=== PATIENT | female | born 1945 | race Caucasian/White ===

== ENCOUNTER 2020-08-21 14:54 | Emergency (ER) | payer OTHER ==
[2020-08-21 15:09] VITALS: BMI 27.3
[2020-08-21 15:58] VITALS: TEMP 97.5
[2020-08-21 18:13] VITALS: BP 138/58; PULSE 88
[2020-08-21 18:49] LABS: BASO % 0.5 % (0-2.0); EOS % 0.8 % (0-4.5); HEMATOCRIT 36.9 % (32.4-45.2); HEMOGLOBIN 12.8 GM/dL (10.7-15.3); LYMPH % 18.8 % (8-40); MCH 31.1 pg (25.7-33.7); MCHC 34.7 g/dl (32.0-36.0); MEAN CELL VOLUME 89.6 fl (80-96); MEAN PLT VOLUME 7.1 fl (7.5-11.1); MONO % 7.1 % (3.8-10.2); NEUT % 72.8 % (42.8-82.8); PLATELET COUNT 299 K/MM3 (134-434); RBC 4.12 M/mm3 (3.60-5.2); RDW 12.8 % (11.6-15.6)
[2020-08-21 19:04] LABS: POTASSIUM 4.2 mmol/L (3.5-5.1)
[2020-08-21 19:06] LABS: CALCIUM 9.6 mg/dL (8.5-10.1)
[2020-08-21 19:07] LABS: BLOOD UREA NITROGEN 16.8 mg/dL (7-18)
[2020-08-21 19:10] LABS: CREATININE 0.7 mg/dL (0.55-1.3)
[2020-08-21 19:12] LABS: BILIRUBIN,TOTAL 1.1 mg/dL (0.2-1); TOT PROT 7.7 g/dl (6.4-8.2)
[2020-08-21 21:22] LABS: EPI CELLS 4 /uL (0-25.1); HYALINE CASTS 0 /uL (0-3.1); URINE APPEARANCE CLEAR; URINE BACTERIA 74 /uL (0-1359); URINE BILIRUBIN NEGATIVE (NEGATIVE); URINE COLOR YELLOW; URINE GLUCOSE (UA) 3+ (NEGATIVE); URINE KETONE 1+ (NEGATIVE); URINE LEUK ESTERASE NEGATIVE (NEGATIVE); URINE NITRITE NEGATIVE (NEGATIVE); URINE PROTEIN TRACE (NEGATIVE); URINE RBC 9 /uL (0-23.9); URINE UROBILINOGEN 0.2 mg/dL (0.2-1.0); URINE WBC 14 /uL (0-25.8)
== END 2020-08-22 00:32 | disposition home or self-care (01) ==
LOC: JER 14:54
DX: L03.116 Cellulitis of left lower limb (principal)
CPT/HCPCS: 36415; 71275-TC; 80053; 81003; 83605; 85025; 87040; 93005; 93010; 93971-TC; 99285-25; Q9967

== ENCOUNTER 2024-07-04 11:42 | Inpatient (IN) | payer MEDICARE ==
[2024-07-04 14:32] LABS: HEMATOCRIT 37.6 % (32.4-45.2); HEMOGLOBIN 12.9 GM/dL (10.7-15.3); MCH 30.7 pg (25.7-33.7); MCHC 34.4 g/dl (32.0-36.0); MEAN CELL VOLUME 89.2 fl (80-96); PLATELET COUNT 236 10^3/uL (134-434); RBC 4.22 M/mm3 (3.60-5.2); RDW 13.4 % (11.6-15.6); WHITE BLOOD COUNT 11.3 K/mm3 (4.0-10.0)
[2024-07-04 14:52] LABS: ALBUMIN 4.1 g/dl (3.4-5.0); BLOOD UREA NITROGEN 16.4 mg/dL (7-18); CALCIUM 9.4 mg/dL (8.5-10.1); MAGNESIUM 1.7 mg/dL (1.8-2.4)
[2024-07-04 14:56] LABS: CREATININE 0.6 mg/dL (0.55-1.3)
[2024-07-04 14:57] LABS: BILIRUBIN,TOTAL 1.2 mg/dL (0.2-1); TOT PROT 7.5 g/dl (6.4-8.2)
[2024-07-04] MEDS ORDERED: DIPHTH,PERTUSS(ACELL),TET 0.5 ML DISP.SYRIN IM ONE (14:57)
[2024-07-04] MEDS: DIPHTH,PERTUSS(ACELL),TET 0.5 ML DISP.SYRIN IM ONE (14:58)
[2024-07-04 15:15] LABS: INR 1.06 (0.83-1.09); PROTHROMBIN TIME (PATIENT) 11.6 SEC (9.7-13.0)
[2024-07-04 15:18] LABS: ACTIVATED PTT 25.9 SECONDS (25.2-36.5)
[2024-07-04] MEDS ORDERED: ACETAMINOPHEN INJECTION 100 ML ONE (18:14)
[2024-07-04] MEDS: ACETAMINOPHEN 1000 MG/100 ML BAG IVPB ONE (18:21)
[2024-07-04 19:32] LABS: PH,URINE 5.5 (5.0-8.0); URINE APPEARANCE CLEAR; URINE BILIRUBIN NEGATIVE (NEGATIVE); URINE COLOR YELLOW; URINE GLUCOSE (UA) 3+ (NEGATIVE); URINE KETONE 2+ (NEGATIVE); URINE LEUK ESTERASE NEGATIVE (NEGATIVE); URINE NITRITE NEGATIVE (NEGATIVE); URINE PROTEIN NEGATIVE (NEGATIVE); URINE UROBILINOGEN 0.2 mg/dL (0.2-1.0)
[2024-07-04] MEDS ORDERED: MORPHINE SULFATE 2 MG/ML SYRINGE IVPUSH PRN (20:52)
[2024-07-04] MEDS ORDERED: MAGNESIUM SULFATE IN WATER 2 GM/50 ML IVPB IVPB ONE (20:55)
[2024-07-04] MEDS ORDERED: INSULIN ASPART SLIDING SCALE (NOVOLOG) 1 VIAL SQ ONE (20:58)
[2024-07-04] MEDS: LACTATED RINGERS SOLUTION 1,000 ML/1,000 ML INFUS.BAG IV SCH (21:17)
[2024-07-04] MEDS: MAGNESIUM SULF 50% (8.12 MEQ/2 ML-1 GM VIAL) IVPB ONE (21:17)
[2024-07-04] MEDS: INSULIN ASPART SLIDING SCALE (NOVOLOG) 1 VIAL SQ SCH (21:17)
[2024-07-04] MEDS: MAGNESIUM 2GM/50ML STERILE WATER IVPB IVPB ONE (21:54)
[2024-07-05] MEDS: ACETAMINOPHEN 1000 MG/100 ML BAG IVPB PRN (02:18)
[2024-07-05] MEDS: INSULIN (LEVEMIR) 100 UNITS/ML UNITS SQ SCH (06:04)
[2024-07-05 09:02] LABS: INR 1.18 (0.83-1.09)
[2024-07-05 09:07] LABS: HEMATOCRIT 31.2 % (32.4-45.2); MCH 31.4 pg (25.7-33.7); MCHC 35.1 g/dl (32.0-36.0); MEAN CELL VOLUME 89.3 fl (80-96); PLATELET COUNT 194 10^3/uL (134-434); RBC 3.49 M/mm3 (3.60-5.2); RDW 13.1 % (11.6-15.6); WHITE BLOOD COUNT 8.1 K/mm3 (4.0-10.0)
[2024-07-05 09:16] LABS: POTASSIUM 3.6 mmol/L (3.5-5.1)
[2024-07-05 09:34] LABS: ALBUMIN 3.4 g/dl (3.4-5.0); CALCIUM 8.8 mg/dL (8.5-10.1)
[2024-07-05 09:35] LABS: BLOOD UREA NITROGEN 16.2 mg/dL (7-18)
[2024-07-05 09:37] LABS: CREATININE 0.5 mg/dL (0.55-1.3)
[2024-07-05 09:39] LABS: BILIRUBIN,TOTAL 1.6 mg/dL (0.2-1); TOT PROT 6.5 g/dl (6.4-8.2)
[2024-07-05] MEDS ORDERED: MIDAZOLAM HCL 2 MG/2 ML SINGLE DOSE VIAL ONE (14:13)
[2024-07-05] MEDS ORDERED: PROPOFOL 20 ML ONE (14:13)
[2024-07-05] MEDS ORDERED: ONDANSETRON 4 MG/2 ML VIAL ONE (14:14)
[2024-07-05] MEDS ORDERED: DEXAMETHASONE SOD PHOSPHATE 4 MG/1 ML VIAL ONE (14:14)
[2024-07-05] MEDS ORDERED: ceFAZolin SODIUM 1 GM VIAL ONE (14:14)
[2024-07-05] MEDS ORDERED: KETOROLAC TROMETHAMINE 30 MG/1 ML VIAL ONE ×2 (14:14)
[2024-07-05] MEDS ORDERED: SEVOFLURANE 250 ML BTL ONE (14:14)
[2024-07-05] MEDS ORDERED: LIDOCAINE HCL 2% 100 MG/5 ML DISP.SYRIN ONE (14:14)
[2024-07-05] MEDS ORDERED: ACETAMINOPHEN INJECTION 100 ML ONE (14:24)
[2024-07-05] MEDS: ceFAZolin SODIUM 1 GM VIAL IVPB ONE (14:42)
[2024-07-05] MEDS ORDERED: TRANEXAMIC ACID 1000 MG/10 ML VIAL ONE ×2 (15:21→16:36)
[2024-07-05] MEDS ORDERED: ONDANSETRON 4 MG/2 ML VIAL IVPUSH PRN ×2 (17:02→17:06)
[2024-07-05] MEDS ORDERED: MAG HYDROX/AL HYDROX/SIMETH 30 ML UNIT-DOSE CUP PO PRN (17:02)
[2024-07-05] MEDS ORDERED: oxyCODONE HCL 5 MG TABLET PO PRN (17:06)
[2024-07-05] MEDS ORDERED: ACETAMINOPHEN 1000 MG/100 ML BAG IVPB PRN (17:30)
[2024-07-05] MEDS ORDERED: LACTATED RINGERS SOLUTION 1,000 ML/1,000 ML INFUS.BAG IV SCH (17:30)
[2024-07-05] MEDS: LACTATED RINGERS SOLUTION 1,000 ML IV SCH (18:21)
[2024-07-05] MEDS: SENNOSIDES/DOCUSATE COMBO (SENNA PLUS) TABLET (UD) PO SCH (21:57)
[2024-07-05] MEDS: INSULIN ASPART SLIDING SCALE (NOVOLOG) 1 VIAL SQ SCH (21:57)
[2024-07-05] MEDS: CEFAZOLIN 2 GM/D5W 2 GM/50 ML ML IVPB SCH (21:57)
[2024-07-06] MEDS: INSULIN (LEVEMIR) 100 UNITS/ML UNITS SQ SCH (06:20)
[2024-07-06 10:02] LABS: HEMATOCRIT 26.8 % (32.4-45.2); HEMOGLOBIN 9.5 GM/dL (10.7-15.3); MCH 31.9 pg (25.7-33.7); MCHC 35.5 g/dl (32.0-36.0); MEAN CELL VOLUME 89.8 fl (80-96); MEAN PLT VOLUME 7.2 fl (7.5-11.1); PLATELET COUNT 167 10^3/uL (134-434); RBC 2.99 M/mm3 (3.60-5.2); RDW 13.5 % (11.6-15.6); WHITE BLOOD COUNT 6.4 K/mm3 (4.0-10.0)
[2024-07-06 10:16] LABS: POTASSIUM 4.1 mmol/L (3.5-5.1)
[2024-07-06 10:21] LABS: BLOOD UREA NITROGEN 18.7 mg/dL (7-18); CALCIUM 8.7 mg/dL (8.5-10.1)
[2024-07-06 10:24] LABS: CREATININE 0.5 mg/dL (0.55-1.3)
[2024-07-06] MEDS: ENOXAPARIN NA (PORCINE) 40 MG/0.4 ML DISP.SYRIN SQ SCH (10:30)
[2024-07-06] MEDS: PANTOPRAZOLE 40 MG TABLET PO SCH (10:31)
[2024-07-06] MEDS: oxyCODONE HCL 5 MG TABLET PO PRN (10:31)
[2024-07-06] MEDS: MULTIVITAMINS (DAILY MVI) TABLET (FP) PO SCH (10:31)
[2024-07-07 09:18] LABS: HEMOGLOBIN 9.1 GM/dL (10.7-15.3); MCH 31.1 pg (25.7-33.7); MCHC 35.1 g/dl (32.0-36.0); MEAN CELL VOLUME 88.8 fl (80-96); MEAN PLT VOLUME 6.9 fl (7.5-11.1); PLATELET COUNT 181 10^3/uL (134-434); RBC 2.93 M/mm3 (3.60-5.2); WHITE BLOOD COUNT 5.9 K/mm3 (4.0-10.0)
[2024-07-07 09:30] LABS: POTASSIUM 3.5 mmol/L (3.5-5.1)
[2024-07-07 09:33] LABS: CALCIUM 8.3 mg/dL (8.5-10.1)
[2024-07-07 09:37] LABS: BLOOD UREA NITROGEN 14.7 mg/dL (7-18); CREATININE 0.4 mg/dL (0.55-1.3)
[2024-07-07] MEDS: PANTOPRAZOLE SODIUM 40 MG VIAL IVPUSH SCH (16:26)
[2024-07-07] MEDS: SODIUM CHLORIDE 1,000 ML IV SCH (16:35)
[2024-07-07] MEDS: ASPIRIN 300 MG SUPP.RECT RC ONE (17:06)
[2024-07-08 07:57] LABS: BASO % 0.5 % (0-2.0); EOS % 0.8 % (0-4.5); HEMATOCRIT 25.1 % (32.4-45.2); HEMOGLOBIN 8.7 GM/dL (10.7-15.3); LYMPH % 17.1 % (8-40); MCH 31.1 pg (25.7-33.7); MCHC 34.6 g/dl (32.0-36.0); MEAN CELL VOLUME 89.9 fl (80-96); MONO % 7.8 % (3.8-10.2); NEUT % 73.8 % (42.8-82.8); PLATELET COUNT 218 10^3/uL (134-434); RDW 12.7 % (11.6-15.6); WHITE BLOOD COUNT 5.7 K/mm3 (4.0-10.0)
[2024-07-08 08:16] LABS: POTASSIUM 3.4 mmol/L (3.5-5.1)
[2024-07-08 08:22] LABS: ALBUMIN 2.5 g/dl (3.4-5.0); MAGNESIUM 1.8 mg/dL (1.8-2.4)
[2024-07-08 08:23] LABS: CALCIUM 8.2 mg/dL (8.5-10.1)
[2024-07-08 08:24] LABS: BLOOD UREA NITROGEN 12.8 mg/dL (7-18); CREATININE 0.3 mg/dL (0.55-1.3)
[2024-07-08 08:26] LABS: TOT PROT 5.3 g/dl (6.4-8.2)
[2024-07-08 08:27] LABS: PHOSPHOROUS 2.2 mg/dL (2.5-4.9)
[2024-07-08 08:29] LABS: BILIRUBIN,TOTAL 1.8 mg/dL (0.2-1)
[2024-07-08] MEDS: ASPIRIN COATED 81 MG TABLET.EC PO SCH (18:01)
[2024-07-08] MEDS: ATORVASTATIN CA 40 MG TABLET (FP) PO SCH (21:16)
[2024-07-08] MEDS: POTASSIUM CHLORIDE ORAL LIQUID 20 MEQ/15 ML PO SCH (21:27)
[2024-07-08] MEDS: NAPH,MB-DB/K PH,MBDB POWDER PACKET PO ONE (21:27)
[2024-07-09] MEDS: INSULIN (LEVEMIR) 100 UNITS/ML UNITS SQ SCH (07:06)
[2024-07-09] MEDS ORDERED: MAG HYDROX/AL HYDROX/SIMETH 30 ML UNIT-DOSE CUP PO PRN (09:16)
[2024-07-09] MEDS ORDERED: ONDANSETRON 4 MG/2 ML VIAL IVPUSH PRN (09:16)
[2024-07-09] MEDS ORDERED: POTASSIUM CHLORIDE TABS 20 MEQ TABLET.ER (FP) PO SCH (10:00)
[2024-07-09] MEDS: MULTIVITAMINS (DAILY MVI) TABLET (FP) PO SCH (10:34)
[2024-07-09] MEDS: ENOXAPARIN NA (PORCINE) 40 MG/0.4 ML DISP.SYRIN SQ SCH (10:34)
[2024-07-09] MEDS: SENNOSIDES/DOCUSATE COMBO (SENNA PLUS) TABLET (UD) PO SCH (10:34)
[2024-07-09] MEDS: INSULIN ASPART SLIDING SCALE (NOVOLOG) 1 VIAL SQ SCH (11:46)
[2024-07-09] MEDS: ACETAMINOPHEN 1000 MG/100 ML BAG IVPB PRN (22:14)
[2024-07-10] MEDS ORDERED: INSULIN ASPART SLIDING SCALE (NOVOLOG) 1 VIAL SQ ONE (06:28)
[2024-07-10 07:07] LABS: HEMATOCRIT 26.1 % (32.4-45.2); MCH 30.8 pg (25.7-33.7); MCHC 34.6 g/dl (32.0-36.0); MEAN CELL VOLUME 89.1 fl (80-96); MEAN PLT VOLUME 6.5 fl (7.5-11.1); PLATELET COUNT 266 10^3/uL (134-434); RBC 2.94 M/mm3 (3.60-5.2); RDW 13.2 % (11.6-15.6); WHITE BLOOD COUNT 6.5 K/mm3 (4.0-10.0)
[2024-07-10] MEDS ORDERED: oxyCODONE HCL 5 MG TABLET PO PRN (07:26)
[2024-07-10 07:27] LABS: POTASSIUM 4.1 mmol/L (3.5-5.1)
[2024-07-10 07:32] LABS: CALCIUM 8.6 mg/dL (8.5-10.1)
[2024-07-10 07:33] LABS: BLOOD UREA NITROGEN 14.5 mg/dL (7-18); MAGNESIUM 2.1 mg/dL (1.8-2.4)
[2024-07-10 07:36] LABS: CREATININE 0.4 mg/dL (0.55-1.3); PHOSPHOROUS 3.2 mg/dL (2.5-4.9)
[2024-07-10] MEDS: PANTOPRAZOLE 40 MG TABLET PO SCH (10:10)
[2024-07-10] MEDS: CLOPIDOGREL BISULFATE 75 MG TABLET (FP) PO SCH (10:11)
[2024-07-10 14:41] VITALS: BMI 24.2
[2024-07-10] MEDS: SODIUM CHLORIDE 1,000 ML IV SCH (19:04)
[2024-07-11 07:55] LABS: BASO % 0.3 % (0-2.0); HEMATOCRIT 25.6 % (32.4-45.2); LYMPH % 14.3 % (8-40); MCH 31.3 pg (25.7-33.7); MCHC 35.1 g/dl (32.0-36.0); MEAN CELL VOLUME 89.1 fl (80-96); MEAN PLT VOLUME 6.6 fl (7.5-11.1); MONO % 6.5 % (3.8-10.2); NEUT % 76.9 % (42.8-82.8); PLATELET COUNT 303 10^3/uL (134-434); RBC 2.87 M/mm3 (3.60-5.2); RDW 13.2 % (11.6-15.6); WHITE BLOOD COUNT 8.4 K/mm3 (4.0-10.0)
[2024-07-11] MEDS ORDERED: INSULIN ASPART SLIDING SCALE (NOVOLOG) 1 VIAL SQ ONE (08:14)
[2024-07-11] MEDS ORDERED: INSULIN (LEVEMIR) 100 UNITS/ML UNITS SQ ONE (08:14)
[2024-07-11 08:24] LABS: BLOOD UREA NITROGEN 12.6 mg/dL (7-18)
[2024-07-11 08:26] LABS: CREATININE 0.4 mg/dL (0.55-1.3)
[2024-07-11 08:28] LABS: CALCIUM 8.3 mg/dL (8.5-10.1); MAGNESIUM 1.9 mg/dL (1.8-2.4)
[2024-07-11] MEDS ORDERED: EZETIMIBE 10 MG TABLET (FP) PO SCH (10:00)
[2024-07-12] MEDS ORDERED: INSULIN (LEVEMIR) 100 UNITS/ML UNITS SQ ONE (06:21)
[2024-07-12] MEDS ORDERED: INSULIN ASPART SLIDING SCALE (NOVOLOG) 1 VIAL SQ ONE (06:21)
[2024-07-12 08:17] LABS: CALCIUM 8.7 mg/dL (8.5-10.1)
[2024-07-12 08:18] LABS: BLOOD UREA NITROGEN 9.8 mg/dL (7-18); MAGNESIUM 1.8 mg/dL (1.8-2.4)
[2024-07-12 08:21] LABS: CREATININE 0.5 mg/dL (0.55-1.3); PHOSPHOROUS 2.8 mg/dL (2.5-4.9)
[2024-07-12 08:25] LABS: BASO % 0.7 % (0-2.0); EOS % 1.4 % (0-4.5); HEMATOCRIT 26.5 % (32.4-45.2); HEMOGLOBIN 9.3 GM/dL (10.7-15.3); LYMPH % 14.7 % (8-40); MCH 30.9 pg (25.7-33.7); MCHC 35.2 g/dl (32.0-36.0); MEAN CELL VOLUME 87.8 fl (80-96); MEAN PLT VOLUME 6.7 fl (7.5-11.1); MONO % 6.4 % (3.8-10.2); NEUT % 76.8 % (42.8-82.8); PLATELET COUNT 355 10^3/uL (134-434); RBC 3.02 M/mm3 (3.60-5.2); RDW 13.5 % (11.6-15.6); WHITE BLOOD COUNT 7.4 K/mm3 (4.0-10.0)
[2024-07-12] MEDS: INSULIN ASPART SLIDING SCALE (NOVOLOG) 1 VIAL SQ SCH (11:57)
[2024-07-12] MEDS: MAGNESIUM SULFATE IN WATER 2 GM/50 ML IVPB IVPB ONE (12:50)
[2024-07-12 19:31] LABS: EPI CELLS 17 /uL (0-25.1); HYALINE CASTS 4 /uL (0-3.1); PH,URINE 6.5 (5.0-8.0); URINE APPEARANCE TURBID; URINE BACTERIA >9,000 /uL (0-1359); URINE BILIRUBIN NEGATIVE (NEGATIVE); URINE COLOR YELLOW; URINE GLUCOSE (UA) 3+ (NEGATIVE); URINE KETONE NEGATIVE (NEGATIVE); URINE LEUK ESTERASE 2+ (NEGATIVE); URINE NITRITE POSITIVE (NEGATIVE); URINE PROTEIN TRACE (NEGATIVE); URINE RBC 121 /uL (0-23.9); URINE WBC 8168 /uL (0-25.8)
[2024-07-12] MEDS: SODIUM CHLORIDE 1,000 ML IV SCH (20:51)
[2024-07-12] MEDS: CEFTRIAXONE 1 G/50 ML PREMIX 50 ML IVPB SCH (20:51)
[2024-07-12] MEDS: HEPARIN NA (PORCINE) 5,000 UNITS/ML 1ML VIAL SQ SCH (21:12)
[2024-07-12 23:30] LABS: YEAST NOT SEEN (NEGATIVE)
[2024-07-13 08:35] LABS: BASO % 0.8 % (0-2.0); HEMATOCRIT 24.7 % (32.4-45.2); HEMOGLOBIN 8.7 GM/dL (10.7-15.3); LYMPH % 18.8 % (8-40); MCH 31.4 pg (25.7-33.7); MCHC 35.1 g/dl (32.0-36.0); MEAN CELL VOLUME 89.7 fl (80-96); MEAN PLT VOLUME 6.7 fl (7.5-11.1); MONO % 6.5 % (3.8-10.2); NEUT % 71.9 % (42.8-82.8); PLATELET COUNT 360 10^3/uL (134-434); RBC 2.76 M/mm3 (3.60-5.2); RDW 13.4 % (11.6-15.6)
[2024-07-13 08:43] LABS: POTASSIUM 4.1 mmol/L (3.5-5.1)
[2024-07-13 08:47] LABS: BLOOD UREA NITROGEN 13.6 mg/dL (7-18); CALCIUM 8.5 mg/dL (8.5-10.1)
[2024-07-13 08:48] LABS: MAGNESIUM 1.9 mg/dL (1.8-2.4)
[2024-07-13 08:51] LABS: CREATININE 0.4 mg/dL (0.55-1.3); PHOSPHOROUS 3.1 mg/dL (2.5-4.9)
[2024-07-14 07:45] LABS: HEMATOCRIT 25.5 % (32.4-45.2); MCH 31.4 pg (25.7-33.7); MCHC 35.3 g/dl (32.0-36.0); MEAN CELL VOLUME 88.8 fl (80-96); MEAN PLT VOLUME 6.8 fl (7.5-11.1); PLATELET COUNT 431 10^3/uL (134-434); RBC 2.88 M/mm3 (3.60-5.2); RDW 13.4 % (11.6-15.6); WHITE BLOOD COUNT 8.1 K/mm3 (4.0-10.0)
[2024-07-14 08:13] LABS: CALCIUM 8.6 mg/dL (8.5-10.1)
[2024-07-14 08:14] LABS: BLOOD UREA NITROGEN 10.8 mg/dL (7-18); MAGNESIUM 2.1 mg/dL (1.8-2.4); POTASSIUM 4.2 mmol/L (3.5-5.1)
[2024-07-14 08:16] LABS: CREATININE 0.4 mg/dL (0.55-1.3)
[2024-07-15 08:06] LABS: BASO % 0.7 % (0-2.0); EOS % 1.2 % (0-4.5); HEMATOCRIT 26.9 % (32.4-45.2); HEMOGLOBIN 9.3 GM/dL (10.7-15.3); LYMPH % 14.5 % (8-40); MCH 30.5 pg (25.7-33.7); MCHC 34.7 g/dl (32.0-36.0); MEAN PLT VOLUME 6.6 fl (7.5-11.1); MONO % 5.8 % (3.8-10.2); NEUT % 77.8 % (42.8-82.8); PLATELET COUNT 465 10^3/uL (134-434); RBC 3.06 M/mm3 (3.60-5.2); RDW 13.2 % (11.6-15.6); WHITE BLOOD COUNT 9.4 K/mm3 (4.0-10.0)
[2024-07-15 08:33] LABS: POTASSIUM 3.8 mmol/L (3.5-5.1)
[2024-07-15 08:43] LABS: BLOOD UREA NITROGEN 11.2 mg/dL (7-18); CALCIUM 8.5 mg/dL (8.5-10.1)
[2024-07-15 08:45] LABS: MAGNESIUM 2.1 mg/dL (1.8-2.4)
[2024-07-15 08:47] LABS: CREATININE 0.5 mg/dL (0.55-1.3)
[2024-07-17 07:45] LABS: BASO % 0.6 % (0-2.0); EOS % 1.3 % (0-4.5); HEMATOCRIT 26.5 % (32.4-45.2); HEMOGLOBIN 9.2 GM/dL (10.7-15.3); LYMPH % 16.9 % (8-40); MCHC 34.8 g/dl (32.0-36.0); MEAN PLT VOLUME 6.7 fl (7.5-11.1); MONO % 5.4 % (3.8-10.2); NEUT % 75.8 % (42.8-82.8); PLATELET COUNT 525 10^3/uL (134-434); RBC 2.98 M/mm3 (3.60-5.2); RDW 13.7 % (11.6-15.6); WHITE BLOOD COUNT 9.3 K/mm3 (4.0-10.0)
[2024-07-17 08:09] LABS: POTASSIUM 4.3 mmol/L (3.5-5.1)
[2024-07-17 08:28] LABS: CALCIUM 8.8 mg/dL (8.5-10.1); CREATININE 0.4 mg/dL (0.55-1.3); MAGNESIUM 2.1 mg/dL (1.8-2.4); PHOSPHOROUS 3.3 mg/dL (2.5-4.9)
[2024-07-17] MEDS: INSULIN (LEVEMIR) 100 UNITS/ML UNITS SQ SCH (21:27)
[2024-07-17] MEDS: INSULIN ASPART SLIDING SCALE (NOVOLOG) 1 VIAL SQ SCH (21:46)
[2024-07-18 00:15] VITALS: RESP 18
[2024-07-18 08:06] LABS: EOS % 1.8 % (0-4.5); MEAN PLT VOLUME 6.5 fl (7.5-11.1)
[2024-07-18 08:12] LABS: BASO % 0.6 % (0-2.0); HEMATOCRIT 27.1 % (32.4-45.2); HEMOGLOBIN 9.3 GM/dL (10.7-15.3); LYMPH % 16.6 % (8-40); MCH 30.7 pg (25.7-33.7); MCHC 34.4 g/dl (32.0-36.0); MEAN CELL VOLUME 89.1 fl (80-96); MONO % 4.5 % (3.8-10.2); NEUT % 76.5 % (42.8-82.8); PLATELET COUNT 517 10^3/uL (134-434); RBC 3.04 M/mm3 (3.60-5.2); RDW 14.3 % (11.6-15.6); WHITE BLOOD COUNT 9.7 K/mm3 (4.0-10.0)
[2024-07-18 08:37] LABS: POTASSIUM 4.3 mmol/L (3.5-5.1)
[2024-07-18 08:38] LABS: BLOOD UREA NITROGEN 16.3 mg/dL (7-18); CALCIUM 9.2 mg/dL (8.5-10.1); MAGNESIUM 2.4 mg/dL (1.8-2.4)
[2024-07-18 08:41] LABS: CREATININE 0.5 mg/dL (0.55-1.3)
[2024-07-18 08:42] LABS: PHOSPHOROUS 3.6 mg/dL (2.5-4.9)
[2024-07-18 11:17] VITALS: BP 127/55; PULSE 88; TEMP 97.7
== END 2024-07-18 11:00 | disposition home or self-care (01) | DRG 912 ==
LOC: JER 11:42 → UNDOADMIN 16:40 → JERBED 16:40 → J6S 22:46 → JERBED 22:46 → SUATTDRO 22:47 → JASUSAT 22:47 → J6S 22:47 → JASUSAT 22:48 → J6S 22:48 → J4W 07-07 14:43
PROVIDERS: ADMIT Internal Medicine; ATTEND Internal Medicine
PROC: 0QS636Z Reposition Right Upper Femur with Intramedullary Internal Fixation Device, Percutaneous Approach (ICD-10-PCS; principal; 2024-07-05 14:00)
DX: S72.141A Displaced intertrochanteric fracture of right femur, initial encounter for closed fracture (principal); I63.532 Cerebral infarction due to unspecified occlusion or stenosis of left posterior cerebral artery; D62 Acute posthemorrhagic anemia; G81.91 Hemiplegia, unspecified affecting right dominant side; I47.10 Supraventricular tachycardia, unspecified; N12 Tubulo-interstitial nephritis, not specified as acute or chronic; E11.65 Type 2 diabetes mellitus with hyperglycemia; S32.591A Other specified fracture of right pubis, initial encounter for closed fracture; E78.5 Hyperlipidemia, unspecified; E87.6 Hypokalemia; F03.90 Unspecified dementia, unspecified severity, without behavioral disturbance, psychotic disturbance, mood disturbance, and anxiety; I49.3 Ventricular premature depolarization; R29.6 Repeated falls; R41.3 Other amnesia; R47.81 Slurred speech; B96.20 Unspecified Escherichia coli [E. coli] as the cause of diseases classified elsewhere; W19.XXXA Unspecified fall, initial encounter; Y93.9 Activity, unspecified; Y92.008 Other place in unspecified non-institutional (private) residence as the place of occurrence of the external cause; Y99.9 Unspecified external cause status; R33.9 Retention of urine, unspecified
CPT/HCPCS: 0241U-QW; 36415; 70450-TC; 70496-TC; 70498-TC; 71045-TC-FY; 72125-TC; 72170-TC-FY; 72192-TC; 73070-TC-RT-FY; 73552-TC-RT-FY; 73560-TC-RT-FY; 74230-TC-FY; 76000-TC-FY; 80048; 80053; 80061; 81003; 82962; 83036; 83735; 84100; 84484; 85025; 85027; 85610; 85730; 86850; 86900; 86901; 86922; 87040; 87086; 87186; 90715; 92611-GN; 93005; 93010; 93306-TC; 94760; 97116-GP; 97161-GP; 99285-25; C1713; J0131; J1644